=== PATIENT | female | born 1970 | race Caucasian/White ===

== ENCOUNTER → 2018-05-30 10:05 | Outpatient (CLI) | payer OTHER, SELFPAY ==
--- NOTE | 2018-05-30 10:09 | DI.US.S_ITS ---
PROCEDURE: US OB <= 14 WEEKS FETUS INDICATIONS: SIZE AND DATES OUTSIDE/PRIOR DATING DATA: Last menstrual period (LMP): Unknown. LMP-based estimated date of delivery (RANI): N./A.. First dating scan (date and location): 05/30/18. Estimated date of delivery (RANI) from first dating scan: 12/16/18. TECHNIQUE: Real-time scanning was performed of the fetus and maternal pelvic organs, with image documentation. Endovaginal scanning was also performed to better visualize the fetus and maternal ovaries. COMPARISON: None. FINDINGS: Embryo: Corcoran-rump length measures 4.6 cm corresponding to 11 weeks 3 days. Embryonic heart rate measures 168 beats per minute. Measurement variability in dating: +/- 4 weeks by LMP, +/- 7 days by mean sac diameter (use before 6 weeks gestation if crown-rump length not able to be measured), +/- 5 days by crown-rump length (up to 8 weeks 6 days gestation), +/- 7 days by crown-rump length (up to 13 weeks 6 days gestation). Maternal organs: Ovaries within normal limits, with left corpus luteal cyst measuring 21 mm. Limited images through the kidneys demonstrate no hydronephrosis. IMPRESSION: 11 week 3 day single living IUP. Dictated by: Wild Rowland [facility] Interpreted: Judson Olivares MD on 05/30/2018 at 10:54 Approved by: Judson Olivares M.D. on 05/30/2018 at 15:02
[2018-05-30 11:29] LABS: Appearance Urine UA CLEAR; Bilirubin Urine UA NEGATIVE (NEGATIVE); Color Urine UA YELLOW; Glucose Urine UA NEGATIVE (Negative); Ketones Urine UA NEGATIVE (NEGATIVE); Leukocyte Esterase Urine UA NEGATIVE (NEGATIVE); Nitrite Urine UA NEGATIVE (Negative); Occult Blood Urine UA NEGATIVE (Negative); Protein Urine UA NEGATIVE (Negative); Urobilinogen Urine UA 0.2 E.U./dL (0.2); pH Urine UA 6.5 (4.5-8.0)
[2018-05-30 11:40] LABS: Hemoglobin A1C% w Est Avg Glu 5.5 % (4.0-6.0)
[2018-05-30 11:46] LABS: Add Manual Diff / Slide Review NO; Basophils Absolute Auto 0 /uL (0-100); Basophils Percent Auto 0.3 % (0-2); Eosinophils Absolute Auto 100 /uL (0-450); Eosinophils Percent Auto 0.8 % (2-4); Hematocrit 41.1 % (36-46); Hemoglobin 13.7 g/dL (12.0-16.0); Lymphocytes Absolute Auto 1800 /uL (1100-4500); Lymphocytes Percent Auto 22.5 % (25-40); Mean Corpuscular HGB Conc 33.4 % (30-36); Mean Corpuscular Hemoglobin 28.7 PG (26-34); Mean Corpuscular Volume 86.1 fL (80-100); Monocytes Absolute Auto 500 /uL (0-900); Monocytes Percent Auto 6.1 % (3-14); Neutrophils Absolute Auto 5700 /uL (1500-7000); Neutrophils Percent Auto 70.3 % (50-75); Platelet Count 236 X10^3/uL (150-400); Red Blood Cell Count 4.78 X10^6/uL (4.0-5.2); Red Cell Distribution Width 13.5 % (11.6-14.8); White Blood Cell Count 8.2 X10^3/uL (4.5-11.0)
[2018-05-30 12:03] LABS: Glucose 114 mg/dL (70-100)
[2018-05-30 12:38] LABS: Hepatitis B Surface Antigen NEGATIVE s/c (NEGATIVE); Rubella Antibody IgG 15.6 IU/mL (>15)
[2018-05-30 12:53] LABS: HIV 1 and 2 Antibody NEGATIVE (NEGATIVE); Hep C Virus Ab w/Reflex Quant NEGATIVE s/c (NEGATIVE)
[2018-06-01 14:38] LABS: RPR Screen Nonreactive (Nonreactive)
== END ==
DX: O09.521 Supervision of elderly multigravida, first trimester (principal); Z3A.11 11 weeks gestation of pregnancy
CPT/HCPCS: 36415; 76801; 80055; 81003; 82947; 83036; 86703; 86787; 86803; 86850; 86900; 86901; 87086

== ENCOUNTER → 2018-06-13 12:24 | Outpatient (CLI) | payer OTHER, SELFPAY ==
[2018-06-15 15:41] LABS: Sequential Screen 1st Trimeste FINAL PENDING
[2018-06-21 09:31] LABS: Informaseq SEE SEPARATE REPORTS
== END ==
DX: O09.529 Supervision of elderly multigravida, unspecified trimester (principal); Z3A.12 12 weeks gestation of pregnancy; Z34.91 Encounter for supervision of normal pregnancy, unspecified, first trimester; Z3A.13 13 weeks gestation of pregnancy
CPT/HCPCS: 36415; 81507; 84163; 84702

== ENCOUNTER → 2018-07-04 09:59 | Outpatient (CLI) | payer OTHER, SELFPAY ==
[2018-07-07 10:49] LABS: Sequential Screen 2nd Trimeste SCREEN NEGATIVE
== END ==
DX: Z34.02 Encounter for supervision of normal first pregnancy, second trimester (principal)
CPT/HCPCS: 82105; 82677; 84163; 84702; 86336

== ENCOUNTER → 2018-09-20 11:46 | Outpatient (CLI) | payer OTHER, SELFPAY ==
[2018-09-20 13:43] LABS: Hematocrit 33.4 % (36-46); Hemoglobin 11.3 g/dL (12.0-16.0)
[2018-09-20 14:40] LABS: GTT (PREG) 1 Hour PP 50gm Dose 114 mg/dL (76-139)
== END ==
DX: Z34.82 Encounter for supervision of other normal pregnancy, second trimester (principal)
CPT/HCPCS: 36415; 82950; 85014; 85018

== ENCOUNTER 2018-11-18 12:25 | Outpatient (CLI) | payer OTHER, SELFPAY | END 2018-11-18 13:31 | disposition home or self-care (01) | LOC: LABOR 13:16 → OB 11-22 10:26 | DX: O40.3XX0 Polyhydramnios, third trimester, not applicable or unspecified (principal); Z3A.36 36 weeks gestation of pregnancy | CPT/HCPCS: 59025; G0378; G0379 ==

== ENCOUNTER 2018-11-22 09:24 | Outpatient (CLI) | payer OTHER, SELFPAY | END 2018-11-22 11:10 | disposition home or self-care (01) | LOC: LABOR 11:01 → OB 11-23 10:08 | DX: O40.3XX0 Polyhydramnios, third trimester, not applicable or unspecified (principal); Z3A.36 36 weeks gestation of pregnancy | CPT/HCPCS: 59025; G0378; G0379 ==

== ENCOUNTER 2018-11-25 15:50 | Outpatient (CLI) | payer OTHER, SELFPAY | END 2018-11-25 17:00 | disposition home or self-care (01) | LOC: OB 12-01 12:03 | DX: O40.3XX0 Polyhydramnios, third trimester, not applicable or unspecified (principal); Z3A.37 37 weeks gestation of pregnancy | CPT/HCPCS: 59025; G0378; G0379 ==

== ENCOUNTER 2018-11-29 09:27 | Outpatient (CLI) | payer OTHER, SELFPAY | END 2018-11-29 10:05 | disposition home or self-care (01) | LOC: OB 12-01 12:03 | DX: O40.3XX0 Polyhydramnios, third trimester, not applicable or unspecified (principal); Z3A.37 37 weeks gestation of pregnancy | CPT/HCPCS: 59025; G0378; G0379 ==

== ENCOUNTER 2018-12-02 13:22 | Outpatient (CLI) | payer OTHER, SELFPAY | END 2018-12-02 13:55 | disposition home or self-care (01) | LOC: LABOR 13:39 → OB 12-05 12:28 | DX: O40.3XX0 Polyhydramnios, third trimester, not applicable or unspecified (principal); Z3A.38 38 weeks gestation of pregnancy | CPT/HCPCS: 59025; G0378; G0379 ==

== ENCOUNTER 2018-12-06 12:56 | Outpatient (CLI) | payer OTHER, SELFPAY | END 2018-12-06 14:20 | disposition home or self-care (01) | LOC: LABOR 14:19 → OB 12-07 13:54 | PROVIDERS: Visit Provider Obstetrics & Gynecology | DX: O36.63X0 Maternal care for excessive fetal growth, third trimester, not applicable or unspecified (principal); O40.3XX0 Polyhydramnios, third trimester, not applicable or unspecified; Z3A.38 38 weeks gestation of pregnancy | CPT/HCPCS: 59025; G0378; G0379 ==

== ENCOUNTER 2018-12-09 07:00 | Inpatient (IN) | payer OTHER, SELFPAY ==
[2018-12-09] VITALS (8 sets, daily range): BP systolic 107–130; BP diastolic 64–82; PULSE 76–88; RESP 8–17; TEMP 36.8–37; O2SAT 98–100
--- NOTE | 2018-12-09 | PATH_ITS ---
[facility] Accession Number: [id number] . 01 Material submitted: . PART A: fallopian tube - RIGHT FALLOPIAN TUBE SEGMENT PART B: fallopian tube - LEFT FALLOPIAN TUBE SEGMENT . 02 Diagnosis: A. Right Fallopian Tube Segment, Tubal Ligation: Complete cross-section of segment of fallopian tube x1. Negative for atypia and malignancy. . B. Left Fallopian Tube Segment, Tubal Ligation: Complete cross-section of segment of fallopian tube x1. Negative for atypia and malignancy. I/12/12/2018 . 02 Electronically signed: . Mechelle Bolaños MD, Pathologist NPI- [id number] . 01 Gross description: . (A) Received in formalin, labeled right fallopian tube segment, is a nonfimbriated fallopian tube segment (length-1.5 cm, diameter-0.4 cm) with rodas, smooth, shiny serosa and a rodas unremarkable lumen. Shank Skinner serial sections submitted in cassette A1. (B) Received in formalin, labeled left fallopian tube segment, is a nonfimbriated fallopian tube segment (length-1.1 cm, diameter-0.4 cm) with olmos-rodas, smooth, shiny serosa and a rodas unremarkable lumen. Shank Skinner serial sections submitted in cassette B1. ([id number]) /FRR . 02 Pathologist provided ICD-10: Z30.2 . 02 CPT . 090140, [id number] Performed at: 01 [facility] [address], [place], [place] [id number] MD Trey Cano MD Phone: [phone] Performed at: 02 [id number] [address] [place] [id number] MD Anita Read MD Phone: [phone]
--- NOTE | 2018-12-09 07:12 | PM.OBHP.1 ---
OB HPI Date/Time Date of admission: 12/09/18 Date Patient Seen: 12/09/18 Time Patient Seen: 07:12 History of Present Condition Chief complaint: [id number] : 4 Para: 1 Estimated Date of Delivery: 12/16/18 Estimated Gestational Age (weeks): 39 Narrative: Marilin Davis is a 48 year old female four para one who is admitted for elective section. This patient's antepartum course was unremarkable. Her laboratory studies were normal. Her screens were normal. Her genetic testing was normal. Serial ultrasounds showed accelerated growth and estimated weight of 11 lb, or greater than 5000 g. In view of the size, the risk of labor dystocia, the risk of shoulder dystocia, the patient elected to have a primary section. The patient's glucose studies were all normal. Comments: Large for station only age infant with macrosomia Indications Indication for induction OB: other History of Present care: good care and pounds weight gain (46) Dating criteria: LMP confirmed by 1st trimester US Ultrasounds: normal 1st trimester US, normal mid trimester US and abnormal US findings Abnormal ultrasound findings: Large was station all age macrosomia greater than 5000 g Obstetrical complications: none Medical complications: none Preadmission Labs Blood type: O (+) positive -: Antibody screen: negative, Cystic fibrosis screen: unknown, GBS status: negative, HBsAG: negative, HIV: negative, HSV 1: negative, HSV 2: negative and RPR/VDLR: negative -: Chlamydia screen: detected (Negative) and Gonorrhea screen: detected (Negative) -: Rubella: immune and Varicella: immune HCT: 41 HCAB: negative PAP: Normal Sequential screen: Negative 1 hr GTT: 114 Evaluation Evaluation Variability: Moderate (11-25) monitor accelerations: Present Contraction Frequency (minutes): 0 Cervical dilation (cm): 0 Cervical effacement (%): 0 PFSH Social History Smoking Status: Never smoker Social History Smoking Status: Never smoker Meds Home Medications Medication Instructions Recorded Confirmed Type 1 tab PO DAILY 06/13/18 12/09/18 History vitamin,calcium,tnqkutbd-cuab-hesht acid tablet Allergies Allergy/AdvReac Type Severity Reaction Status Date / Time No Known Drug Allergies Allergy Verified 12/09/18 07:04 Review of Systems Review of Systems All systems reviewed & are unremarkable except as noted in HPI and below Exam Vital Signs (past 8 hours): - 12/09/18 07:05 Blood Pressure 126/74 Const General: cooperative and healthy appearing [facility] Head: normal to inspection Ears: hearing grossly normal bilaterally Nose: external nose normal Face and sinus: normal facial exam Mouth: oral mucosae normal, lip normal, tongue normal and moist mucous membranes Teeth and gingiva: dentition normal Throat: posterior oropharynx normal Eyes General: appearance normal, both eyes and all related structures Neck Neck: normal visual inspection and full ROM Chest Chest: normal inspection of the chest and normal palpation of entire chest wall Breast inspection: normal inspection of the breasts and normal inspection of the axillae Breast Palpation: normal palpation of the breasts and normal palpation of the axillae Resp Effort & Inspection: normal respiratory effort Auscultation: clear to auscultation bilaterally Cardio Palpation: normal PMI Rate: regular rate Rhythm: regular rhythm Heart Sounds: S1 normal and S2 normal GI Inspection: normal to inspection Palpation: soft and no hepatosplenomegaly Percussion: normal to percussion Auscultation: normal bowel sounds OB/External & Speculum: external exam normal Manual OB Exam: dilated Uterus Location (Fundal Height): 0 Presentation: vertex Estimated Weight (lbs): 11 Back/Spine/Pelvis Thoracic/Lumbar Spine: thoracic and lumbar spine normal to inspection Skin General: no rashes or lesions noted Neuro General: alert, oriented x3, tone normal and moves all extremities Cognition: normal cognition Speech: speech normal Gait: normal gait Motor: muscle tone normal throughout Sensory Exam: no sensory deficits noted Extrem General: normal to inspection and normal exam except as noted Psych Appearance: grossly normal and well kempt Mental Status: mental status grossly normal Speech and Movement: speech and movement normal Objective Labs Result Diagrams: 12/09/18 06:30 Assessment and Plan Assessment and Plan Assessment and Plan narrative: Elderly 2nd at 48 years of age macrosomia with weight greater than 5000 g 39 weeks Desire for section and tubal ligation Plan is low segment section and bilateral tubal ligation
--- NOTE | 2018-12-09 07:16 | P.HPOB_ITS ---
OB HPI Date/Time Date of admission: 12/09/18 Date Patient Seen: 12/09/18 Time Patient Seen: 07:12 History of Present Condition Chief complaint: [id number] : 4 Para: 1 Estimated Date of Delivery: 12/16/18 Estimated Gestational Age (weeks): 39 Narrative: Marilin Davis is a 48 year old female four para one who is admitted for elective section. This patient's antepartum course was unremarkable. Her laboratory studies were normal. Her screens were normal. Her genetic testing was normal. Serial ultrasounds showed accelerated growth and estimated weight of 11 lb, or greater than 5000 g. In view of the size, the risk of labor dystocia, the risk of shoulder dy stocia, the patient elected to have a primary section. The patient's glucose studies were all normal. Comments: Large for station only age with macrosomia Indications Indication for induction OB: other History of Present care: good care and pounds weight gain (46) Dating criteria: LMP confirmed by 1st trimester US Ultrasounds: normal 1st trimester US, normal mid trimester US and abnormal US findings Abnormal ultrasound findings: Large was station all age macrosomia greater than 5000 g Obstetrical complications: none Medical complications: none Preadmission Labs Blood type: O (+) positive -: Antibody screen: negative, Cystic fibrosis screen: unknown, GBS status: negative, HBsAG: negative, HIV: negative, HSV 1: negative, HSV 2: negative and RPR/VDLR: negative -: Chlamydia screen: detected (Negative) and Gonorrhea screen: detected (Negative) -: Rubella: immune and Varicella: immune HCT: 41 HCAB: negative PAP: Normal Sequential screen: Negative 1 hr GTT: 114 Evaluation Evaluation Variability: Moderate (11-25) monitor accelerations: Present Contraction Frequency (minutes): 0 Cervical dilation (cm): 0 Cervical effacement (%): 0 PFSH Social History Smoking Status: Never smoker Social History Smoking Status: Never smoker Meds Home Medications Medication Instructions Recorded Confirmed Type 1 tab PO DAILY 06/13/18 12/09/18 History vitamin,calcium,xbhetcqo-qmxi-hnleg acid tablet Allergies Allergy/AdvReac Type Severity Reaction Status Date / Time No Known Drug Allergies Allergy Verified 12/09/18 07:04 Review of Systems Review of Systems All systems reviewed & are unremarkable except as noted in HPI and below Exam Vital Signs (past 8 hours): - 12/09/18 07:05 Blood Pressure 126/74 Const General: cooperative and healthy appearing [facility] Head: normal to inspection Ears: hearing grossly normal bilaterally Nose: external nose normal Face and sinus: normal facial exam Mouth: oral mucosae normal, lip normal, tongue normal and moist mucous membranes Teeth and gingiva: dentition normal Throat: posterior oropharynx normal Eyes General: appearance normal, both eyes and all related structures Neck Neck: normal visual inspection and full ROM Chest Chest: normal inspection of the chest and normal palpation of entire chest wall Breast inspection: normal inspection of the breasts and normal inspection of the axillae Breast Palpation: normal palpation of the breasts and normal palpation of the axillae Resp Effort & Inspection: normal respiratory effort Auscultation: clear to auscultation bilaterally Cardio Palpation: normal PMI Rate: regular rate Rhythm: regular rhythm Heart Sounds: S1 normal and S2 normal GI Inspection: normal to inspection Palpation: soft and no hepatosplenomegaly Percussion: normal to percussion Auscultation: normal bowel sounds OB/External & Speculum: external exam normal Manual OB Exam: dilated Uterus Location (Fundal Height): 0 Presentation: vertex Estimated Weight (lbs): 11 Back/Spine/Pelvis Thoracic/Lumbar Spine: thoracic and lumbar spine normal to inspection Skin General: no rashes or lesions noted Neuro General: alert, oriented x3, tone normal and moves all extremities Cognition: normal cognition Speech: speech normal Gait: normal gait Motor: muscle tone normal throughout Sensory Exam: no sensory deficits noted Extrem General: normal to inspection and normal exam except as noted Psych Appearance: grossly normal and well kempt Mental Status: mental status grossly normal Speech and Movement: speech and movement normal Objective Labs Result Diagrams: 12/09/18 06:30 Assessment and Plan Assessment and Plan Assessment and Plan narrative: Elderly 2nd at 48 years of age macrosomia with weight greater than 5000 g 39 weeks Desire for section and tubal ligation Plan is low segment section and bilateral tubal ligation
[2018-12-09 07:17] LABS: Add Manual Diff / Slide Review NO; Basophils Absolute Auto 0 /uL (0-100); Basophils Percent Auto 0.3 % (0-2); Eosinophils Absolute Auto 100 /uL (0-450); Eosinophils Percent Auto 0.9 % (2-4); Hematocrit 31.9 % (36-46); Hemoglobin 10.7 g/dL (12.0-16.0); Lymphocytes Absolute Auto 1900 /uL (1100-4500); Lymphocytes Percent Auto 19.8 % (25-40); Mean Corpuscular HGB Conc 33.4 % (30-36); Mean Corpuscular Hemoglobin 27.1 PG (26-34); Mean Corpuscular Volume 81.2 fL (80-100); Monocytes Absolute Auto 1000 /uL (0-900); Neutrophils Absolute Auto 6400 /uL (1500-7000); Platelet Count 196 X10^3/uL (150-400); Red Blood Cell Count 3.93 X10^6/uL (4.0-5.2); Red Cell Distribution Width 14.3 % (11.6-14.8); White Blood Cell Count 9.5 X10^3/uL (4.5-11.0)
[2018-12-09] MEDS: OXYMETAZOLINE NASAL SPRAY 30 ML 2 SPRAYS NASAL (07:33)
[2018-12-09] MEDS: LACTATED RINGERS 1,000 ML 100 ML IV ×4 (07:45→20:19)
[2018-12-09] MEDS: CEFOTETAN 2 GM/50 ML PIGGYBACK IV (07:45)
--- NOTE | 2018-12-09 08:10 | SUR.OPER ---
Supine on Padded OR bed, head on pillow, safety belt at thigh, arms secured on padded arm boards at <90 degrees abduction. Bump under right buttock. Legs uncrossed with pillow under knees, gel pad to heels, tape over blanket to lower legs.
--- NOTE | 2018-12-09 09:09 | P.OP_ITS ---
Operative Date/Time/Diagnoses Date of procedure: 12/09/18 Time of procedure: 09:03 Pre-op diagnosis: Term intrauterine Estimated large for gestational age macrosomia Desires sterilization Elderly secundigravida Post-op diagnosis: same (Normal tubes and ovaries) Procedure: Procedures Operation Date: 12/09/18 07:45 Actual Procedures Side Surgeon p Section MD annabel Chaves Bilateral Tubal Ligation Tomy Mullins MD Indications: Primary low segment section Bilateral tubal ligation [place] type Surgeon: Tomy Mullins Anesthesia Type: Spinal Operative Notes Findings: Live-born male , macrosomic with initial scores of seven and eight Normal uterus tubes and ovaries Closure Type: primary Specimen(s): portion of left tube and portion of right tube Applied: catheter Estimated blood loss (mL): 700 Blood products transfused: none Procedure in detail: The patient was placed supine upon the operating table and anesthetized. She was draped and prepared in the usual fashion. A transverse incision was made the subcutaneous tissue incised to the fascia. All bleeders were meticulously fulgurated. Fascia was incised with the sharp knife transversely in each direction. Median raphe was incised in the midline white by blunt finger dissection. Bladder blade was set in place. Peritoneum was picked up and incised. The incision was widened by blunt finger dissection. Bladder blade was placed again. The peritoneum over the lower uterine segment was picked up and incised laterally in each direction. Bladder was taken down sharply without difficulty. The bladder retractor was replaced. Transverse scoring incision was made across the lower uterine segment. Perforating incision was made centrally. Incision was widened by blunt finger dissection. The amniotic fluid was clear. A live born male infant with scores of seven at 1 minute seven at 5 minutes was delivered who had some minor respiratory difficulties. The food safety scientist respiratory therapist and nurses were in attendance. Placenta was delivered manually. Cord had three vessels. All membranes were massaged in the endometrial cavity. Cord blood was obtained. The uterine incision was closed in an imbricating fashion using a two layer technique with 1. Chromic suture. No bleeding points were seen. The visceral peritoneum was closed with a running two 0 chromic suture. Attention was then turned to the fallopian tubes. The left ovary was normal. The left tube was isolated and a loop of tube formed. It was doubly tied with 0 plain catgut suture and the intervening portion of tube excised. Similar procedure was performed on the right-hand side. The ovary on that side was normal as well. The tubes were sent separately. The parietal perineum was then closed with a running two 0 chromic suture. Area was copiously irrigated. Brown Allis muscles were reapproximated in the midline using 1. Vicryl suture. Fascia was closed with two continuous 1. Vicryl sutures. Area was copiously irrigated. The subcutaneous tissue was closed in two layers. The 1st layer was closed with interrupted three 0 Vicryl suture. 2nd layer was closed with continuous horizontal mattress three 0 Vicryl suture. The skin was further approximated with Steri-Strips. The end the procedure blood was vacuumed from the uterus. The urine was clear. The wound was dry. An Aquacel dressing was placed. The patient was taken to the recovery room in satisfactory condition Complications: none Post-operative Condition: stable Disposition: PACU Plan for aftercare: Ob
--- NOTE | 2018-12-09 09:28 | SUR.OPER ---
preoperative OQP=[id number]. Live female at 0811. APGARS 7/8
--- NOTE | 2018-12-09 10:00 | SUR.PHASEI ---
REPORT AND HAND OFF OF CARE TO OB RN, OB RN AWARE OF JING PAD CHANGE AND THAT DR BEST IN TO SEE PT AND AWARE.
[2018-12-09] MEDS: KETOROLAC 30 MG/ML VIAL IV ×2 (14:02→20:19)
[2018-12-09] MEDS: OXYCODONE/ACETAMINOPHEN 5/325 TABLET 1 TAB PO (19:09)
[2018-12-10] MEDS: KETOROLAC 30 MG/ML VIAL IV (02:02)
[2018-12-10 05:45] LABS: Hematocrit 24.8 % (36-46); Hemoglobin 8.6 g/dL (12.0-16.0)
[2018-12-10] MEDS: DOCUSATE 250 MG CAPSULE PO (08:47)
[2018-12-10] MEDS: FERROUS GLUCONATE 324 MG TABLET PO (08:48)
[2018-12-10] MEDS: PRENATAL VIT,CALC/IRON/FOLIC 1 TABLET 1 TAB PO (08:48)
[2018-12-10] MEDS: OXYCODONE/ACETAMINOPHEN 5/325 TABLET 2 TAB PO ×4 (08:49→22:03)
--- NOTE | 2018-12-10 09:59 | PM.OBPN.1 ---
Subjective - OB Patient comments: no complaints and pain well controlled [place] baby status: NICU feeding status: pumping and storing Narrative: Patient is status post elective section for 11 lb 13 oz at 39 weeks. The mother's antepartum course was uneventful all glucose studies were normal. She had estimated large for gestational age and polyhydramnios. Post delivery the baby is had small problems maintaining adequate saturation. Chest x-ray was normal. Baby was transferred to [facility] for observation. Date Patient Seen: 12/10/18 Time Patient Seen: 10:00 Exam Vital Signs (past 8 hours): Oxygen Delivery Method Room Air Narrative Exam Narrative: Abdomen is mildly distended but with good bowel sounds. Uterus is U minus two Lochia scant Incision is covered by an Aquacel dressing Objective Labs Result Diagrams: 12/10/18 05:20 Labs: Laboratory Results - last 24 hr 12/10/18 05:20 Hgb 8.6 L Hct 24.8 L Assessment & Plan Plan day: 1 plan OB: routine postop care Comments: Patient doing well Mild abdominal distention but passing gas Time Spent With Patient Total time spent is greater than 50% in coordination of care (as documented) at patient's floor/unit and/or counseling patient: less than 15 minutes
--- NOTE | 2018-12-10 10:02 | P.PNOB_ITS ---
Subjective - OB Patient comments: no complaints and pain well controlled [place] baby status: NICU feeding status: pumping and storing Narrative: Patient is status post elective section for 11 lb 13 oz at 39 weeks. The mother's antepartum course was uneventful all glucose studies were normal. She had estimated large for gestational age and polyhydramnios. Post delivery the baby is had small problems maintaining adequate saturation. Chest x-ray was normal. Baby was transferred to [place] for observation. Date Patient Seen: 12/10/18 Time Patient Seen: 10:00 Exam Vital Signs (past 8 hours): Oxygen Delivery Method Room Air Narrative Exam Narrative: Abdomen is mildly distended but with good bowel sounds. Uterus is U minus two Lochia scant Incision is covered by an Aquacel dressing Objective Labs Result Diagrams: 12/10/18 05:20 Labs: Laboratory Results - last 24 hr 12/10/18 05:20 Hgb 8.6 L Hct 24.8 L Assessment & Plan Plan day: 1 plan OB: routine postop care Comments: Patient doing well Mild abdominal distention but passing gas Time Spent With Patient Total time spent is greater than 50% in coordination of care (as documented) at patient's floor/unit and/or counseling patient: less than 15 minutes
[2018-12-10] MEDS: IBUPROFEN 600 MG TABLET PO ×2 (11:35→18:35)
[2018-12-11] MEDS: IBUPROFEN 600 MG TABLET PO ×2 (00:20→07:32)
[2018-12-11] MEDS: DOCUSATE 250 MG CAPSULE PO (07:31)
[2018-12-11] MEDS: PRENATAL VIT,CALC/IRON/FOLIC 1 TABLET 1 TAB PO (07:31)
[2018-12-11] MEDS: FERROUS GLUCONATE 324 MG TABLET PO (07:32)
[2018-12-11] MEDS: OXYCODONE/ACETAMINOPHEN 5/325 TABLET 2 TAB PO ×2 (07:32→12:11)
--- NOTE | 2018-12-11 09:45 | PM.OBDS.1 ---
Discharge Providers Date of admission: 12/09/18 07:00 Discharge Date: 12/11/18 Primary care physician: Tomy Mullins MD Consults: 12/09/18 09:58 Consult to Power Screwdriver Operator Routine Comment: Discharge provider: Tomy Mullins MD Summary Date Patient Seen: 12/11/18 Time Patient Seen: 09:45 Procedures: Spinal anesthesia Primary low segment section current type Bilateral tubal ligation [facility] Hospital Course: The patient is a 48-year-old white female two now para two. Patient had problems in the 3rd trimester of her with polyhydramnios and macrosomia. The patient was not a diabetic. Because of size which was estimated to be greater than 5000 g the patient underwent elective section and bilateral tubal ligation. She was delivered of 11 lb 13 oz female infant who did well. Patient however had diminished tone and apnea issues and was transferred to [facility] in [place]. The patient herself did well. She remained afebrile stable vital signs and was progressively element and ambulated. She was discharged home for follow-up in one week for Aquacel dressing removal. Peripartum Data Infant Delivery Method: Section complications: none Status at Discharge Cognitive/behavioral status at discharge: oriented Functional status at discharge: independent ambulation Overall status at discharge: patient is progressing back to baseline Time Spent with Patient Total time spent providing and/or coordinating discharge services: Less than 30 minutes Objective Labs Result Diagrams: 12/10/18 05:20 Exam Vital Signs (past 8 hours): Oxygen Delivery Method Room Air Narrative Exam Narrative: Fundus U minus two Much less abdominal distention with excellent bowel Incision with Aquacel dressing Lochia now scant Discharge Plan Discharge Plan Patient Disposition: Home Discharge Med Rec/Prescriptions Prescriptions: New oxycodone-acetaminophen 5-325 mg Tablet 1 tab PO Q4HR PRN (Reason: Pain, Moderate (4-6)) Qty: 10 RF: 0 ibuprofen 600 mg Tablet 600 mg PO Q6HR PRN (Reason: As Needed For Fever/Mild Pain) Qty: 20 RF: 0 docusate sodium 250 mg Capsule 250 mg PO DAILY Qty: 10 RF: 0 Mzi-P-Ruohbq Cream 1 applic topical PRN PRN (Reason: ) Qty: 1 RF: 0 ferrous gluconate 324 mg (38 mg iron) Tablet 324 mg PO DAILY Qty: 60 RF: 0 Prenatabs Rx 29 mg iron- 1 mg Tablet 1 tab PO DAILY Qty: 30 RF: 0 Discontinued prenat.vits,bubba,kjy-ppty-uozrz tablet 1 tab PO DAILY RF: 0 Follow up/Referrals: Tomy Mullins MD [Primary Care Provider] - 12/16/18 Provider Discharge Instructions Diet: Diet as Tolerated Activity: Up ad lolis Limit stairs No coitus Skin/Wound/Dressing Care Skin care: Keep Aquacel dressing on Report to your healthcare provider any signs of infection, such as:: chills, fever, increased pain, unusual drainage and unusual redness Dressing: Aquacel dressing removed one week Discharge Data Primary Care Provider: Tomy Mullins Attending Provider: Tomy Mullins Admit Date/Time: 12/09/18 07:00
--- NOTE | 2018-12-11 09:48 | P.DS_ITS ---
Discharge Providers Date of admission: 12/09/18 07:00 Discharge Date: 12/11/18 Primary care physician: Tomy Mullins MD Consults: 12/09/18 09:58 Consult to Bilingual Hr Generalist Routine Comment: Discharge provider: Tomy Mullins MD Summary Date Patient Seen: 12/11/18 Time Patient Seen: 09:45 Procedures: Spinal anesthesia Primary low segment section current type Bilateral tubal ligation [facility] Hospital Course: The patient is a 48-year-old white female two now para two. Patient had problems in the 3rd trimester of her with polyhydramnios and macrosomia. The patient was not a diabetic. Because of size which was estimated to be greater than 5000 g the patient underwent elective section and bilateral tubal ligation. She was delivered of 11 lb 13 oz female infant who did well. Patient however had diminished tone and apnea i ssues and was transferred to [facility] in [place]. The patient herself did well. She remained afebrile stable vital signs and was progressively element and ambulated. She was discharged home for follow-up in one week for Aquacel dressing removal. Peripartum Data Delivery Method: Section complications: none Status at Discharge Cognitive/behavioral status at discharge: oriented Functional status at discharge: independent ambulation Overall status at discharge: patient is progressing back to baseline Time Spent with Patient Total time spent providing and/or coordinating discharge services: Less than 30 minutes Objective Labs Result Diagrams: 12/10/18 05:20 Exam Vital Signs (past 8 hours): Oxygen Delivery Method Room Air Narrative Exam Narrative: Fundus U minus two Much less abdominal distention with excellent bowel Incision with Aquacel dressing Lochia now scant Discharge Plan Discharge Plan Patient Disposition: Home Discharge Med Rec/Prescriptions Prescriptions: New oxycodone-acetaminophen 5-325 mg Tablet 1 tab PO Q4HR PRN (Reason: Pain, Moderate (4-6)) Qty: 10 RF: 0 ibuprofen 600 mg Tablet 600 mg PO Q6HR PRN (Reason: As Needed For Fever/Mild Pain) Qty: 20 RF: 0 docusate sodium 250 mg Capsule 250 mg PO DAILY Qty: 10 RF: 0 Tdy-X-Nwnuas Cream 1 applic topical PRN PRN (Reason: ) Qty: 1 RF: 0 ferrous gluconate 324 mg (38 mg iron) Tablet 324 mg PO DAILY Qty: 60 RF: 0 Prenatabs Rx 29 mg iron- 1 mg Tablet 1 tab PO DAILY Qty: 30 RF: 0 Discontinued prenat.vits,bubba,qri-mocv-fxink tablet 1 tab PO DAILY RF: 0 Follow up/Referrals: Tomy Mullins MD [Primary Care Provider] - 12/16/18 Provider Discharge Instructions Diet: Diet as Tolerated Activity: Up ad lolis Limit stairs No coitus Skin/Wound/Dressing Care Skin care: Keep Aquacel dressing on Report to your healthcare provider any signs of infection, such as:: chills, fever, increased pain, unusual drainage and unusual redness Dressing: Aquacel dressing removed one week Discharge Data Primary Care Provider: Tomy Mullins Attending Provider: Tomy Mullins Admit Date/Time: 12/09/18 07:00
[2018-12-11 10:36] VITALS: BP 130/82; PULSE 80; RESP 15; TEMP 37
== END 2018-12-11 12:50 | disposition home or self-care (01) | DRG 784 ==
LOC: LABOR 08:42
PROC: 10D00Z1 Extraction of Products of Conception, Low, Open Approach (ICD-10-PCS; CPT 59514; principal; 2018-12-09 07:45)
PROC: 10D00Z1 Extraction of Products of Conception, Low, Open Approach (ICD-10-PCS; CPT 58605; 2018-12-09 07:45)
DX: O33.5XX0 Maternal care for disproportion due to unusually large fetus, not applicable or unspecified (principal); D62 Acute posthemorrhagic anemia; O40.3XX0 Polyhydramnios, third trimester, not applicable or unspecified; Z3A.39 39 weeks gestation of pregnancy; Z37.0 Single live birth; Z30.2 Encounter for sterilization
CPT/HCPCS: 36415; 58611; 59050; 59510; 85014; 85018; 85025; 86850; 86900; 86901; J1170; J1885; J2274; J2405; J2590; J3010